=== PATIENT | female | born 1945 | race Caucasian/White ===

== ENCOUNTER 2024-09-22 07:21 | Emergency (ER) | payer OTHER, SELFPAY ==
[2024-09-22 07:26] VITALS: BP 190/67
[2024-09-22 07:30] VITALS: BMI 32.7
--- NOTE | 2024-09-22 09:47 | ED.GENMED ---
History of Present Illness
General
Chief Complaint: Musculo-Skeletal Complaint
Source: patient
Exam Limitations: none
Time Seen by Provider: 09/22/24 09:05
Nursing documentation reviewed up to this point in time: agreed with
History of Present Illness
History of Present Illness:
79-year-old female with a past medical history as noted presents to the ER for evaluation of low back pain rating to the groin/buttock. Patient reports onset of symptoms 4 days ago and have been constant since that time. She reports a vague pain
(occasionally sharp occasionally burning and occasionally pressure) starts in the left low back radiates towards the buttock and around towards the groin; she occasionally will have symptoms radiating down the back of the leg towards the knee but
does not go past the knee. Her symptoms seem to be worse when she is moving. Not worse at any particular time of the day. No clear relieving factors noted�has been taking Advil without relief. She denies any numbness or weakness in the legs.
She denies any bowel or bladder incontinence or saddle anesthesia. She does note that she has been dealing with UTI recently was on a course of Macrobid without improvement and so she was prescribed Keflex. She was having some urinary frequency
and dysuria as part of this but the symptoms have generally improved. She has not had fever or chills. She denies abdominal pain. She denies any other complaints. She denies any falls or trauma recently (had a minor fall without serious injuries
about a month ago but no symptoms until this week).
Review of Systems
Review of Systems
All Other Systems: ROS reviewed and negative except as documented in HPI and ROS
Constitutional: Denies fever or chills
Respiratory: Denies trouble breathing
Cardiac: Denies chest pain
ABD/GI: Denies abdominal pain, nausea or vomiting
: Reports flank pain
Musculoskeletal: Reports back pain; Denies neck pain
Neurological: Denies headache, weakness or numbness
Phy Exam
Physical Exam
Physical Exam:
General: Awake, alert, oriented x3; no acute distress
Head: Normocephalic, atraumatic
Eyes: Conjunctiva normal
Throat: Airway intact, handling secretions
Neck: Trachea midline
Lungs: Clear to auscultation bilaterally, no wheezing, rales, rhonchi
Heart: Regular rate and rhythm, no murmurs, gallops, or rubs
Abd: Soft, non distended, nontender to deep palpation
Back: No CVA tenderness, mild paraspinal tenderness in the lumbosacral region but no midline spinal tenderness; negative straight leg raise test bilaterally
Neuro: Cranial nerves grossly intact, speech fluid; motor and sensory intact in legs bilaterally both proximally and distally, ambulatory with normal gait
Skin: no rash in area of concern
Extremities: No edema in extremities, no calf tenderness, equal pulses in all extremities�specifically strong left femoral, popliteal, DP/PT pulses palpable; range of motion of the left hip she has no pain on full passive range of motion
Scores
Heart Failure Risk
Heart Failure Risk Score: Not Applicable
Heart Score for Chest Pain Patients
STEMI patient?: Not applicable
Withdrawal Assessment of Alcohol
Withdrawal Assessment Completed?: Not applicable
Course
Orders/Labs/Results
Orders:
Orders
09/22/24 09:06
Urinalysis Reflex To Culture Urgent
09/22/24 09:30
CT Abd/pel Without Iv Or Oral Urgent
Comment:
Reason For Exam: left flank pain radiates to hip/buttock; h/o stone
Ketorolac [Toradol] 15 mg IV NOW STA
09/22/24 10:26
Complete Blood Count/With Diff Urgent
Comprehensive Metabolic Panel Urgent
Abnormal Lab Results
09/22/24
10:26
MPV 11.5 H fL
(7.4-10.4)
Abs Immat Gran (auto) 0.1 H 10^3/uL
(0-0.05)
Immature Gran % 1.0 H %
(0-0.5)
Glucose 103 H mg/dl
(70-99)
Calcium 11.1 H mg/dl
(8.4-10.2)
09/22/24 10:26
09/22/24 10:26
Vital Signs
Initial and Last Documented VS:
Initial Vital Signs
Temp Pulse Resp BP Pulse Ox
36.4 C 71 16 190/67 99
09/22/24 07:26 09/22/24 07:26 09/22/24 07:26 09/22/24 07:26 09/22/24 07:26
Last Documented Vital Signs
Temp Pulse Resp BP Pulse Ox
36.4 C 71 16 190/67 100
09/22/24 07:26 09/22/24 07:26 09/22/24 08:00 09/22/24 07:26 09/22/24 07:30
MDM/Problems Addressed
Differential Diagnosis Includes:
Nephrolithiasis, UTI/pyelonephritis, hip arthritis, lumbosacral radiculopathy/sciatica
MDM/Problems Addressed:
79-year-old female presents for evaluation of left low back pain radiates towards the hip/groin and occasionally down the left leg. Ongoing for the past few days. Worse with movement. Has had recent urinary symptoms treated with 2 different
antibiotics�these have improved but not resolved. Hypertensive otherwise normal vitals. Physical exam as above. Plan to check basic labs, urinalysis. Check CT abdomen pelvis. Reassess after the above.
Labs reviewed: CBC and CMP unremarkable. CT abdomen pelvis shows no nephrolithiasis but does show findings concerning for mild acute diverticulitis. No signs of perforation or abscess. Certainly this could account for her flank pain and hip pain.
Will plan to treat with antibiotics I think she is a reasonable candidate for outpatient treatment. He feels very comfortable with this plan. Spoke about return precautions all questions answered.
Acute Exacerbation and/or Progression of Chronic Illness:
Acutely hypertensive without signs or symptoms of hypertensive crisis�no indication for emergent antihypertensive treatment
Acute Exacerbation and/or Progression of Chronic Illness: HTN
*Radiology
Radiology exam reviewed: radiology read reviewed
*Pulse Oximetry
Patient hypoxic: no
*Critical Care Note
Total Time (30-74mins, 75-104mins- exclusive of procedures): Not Applicable
Data Reviewed
Source: patient
ED Attending Note
-
Portions of this chart may have been created with voice recognition software.� Occasional wrong word or��sound alike� substitutions may have occurred due to the inherent limitations of voice recognition software.
Discharge Plan
Departure
Patient Disposition: Home (Routine Discharge)
Date of Disposition: 09/22/24
Time of Disposition: 11:27
Patient with high blood pressure during this ER visit?: Yes
Discharge Problem:
Acute diverticulitis, Hypertension
Instructions: Diverticulitis - Discharge instructions, BLOOD PRESSURE
Prescriptions:
New
amoxicillin-pot clavulanate 875-125 mg tablet
1 tab PO BID Qty: 14 0RF
oxycodone 5 mg tablet
5 mg PO Q8H PRN (Reason: Pain) Qty: 10 0RF
No Action
losartan 50 MG tablet
50 mg PO HS
prednisone 1 MG tablet
5 mg PO DAILY
levothyroxine 50 MCG tablet
50 mcg PO DAILY
furosemide 20 MG tablet
20 mg PO PRN PRN (Reason: ankle swelling)
estradiol 1 APPLIC cream
MONTHLY
cholecalciferol (vitamin D3) [Vitamin D3] 400 UNITS tablet
5,000 units PO DAILY
Famotidine
40 mg PO DAILY
PROLIA:
1 dose SC [id number]
Vitamin C Gummies
1 gum PO DAILY
Xiidra
1 drp BOTH EYES DAILY
vitamins A,C,I-adou-lnwraj [PreserVision AREDS] 1 CAP capsule
1 cap PO DAILY
mupirocin 1 APPLIC ointment
1 applic intranasal BID Qty: 1 0RF
mupirocin 1 APPLIC ointment
1 applic intranasal BID
sennosides [senna] 1 TABLET tablet
2 tab PO BID 0RF
aspirin 325 MG tablet
325 mg PO DAILY 0RF
sulfamethoxazole-trimethoprim 1 TABLET tablet
1 tab PO BID Qty: 8 0RF
docusate sodium 100 MG capsule
100 mg PO BID 0RF
hydrocodone-acetaminophen [[place]] 1 EACH tablet
1 ea PO Q4H Qty: 50 0RF
Rx Instructions:
1-2 tabs po q4-6 hours prn
ciprofloxacin HCl 500 mg tablet
500 mg PO Q12H 7 Days Qty: 14 0RF
metronidazole 500 mg tablet
500 mg PO BID 7 Days Qty: 14 0RF
Referrals:
Poornima Sidhu DO [Family Provider] - Follow up in 5-7 days
Activity Restrictions/Additional Instructions:
Thank you for visiting the Emergency Department at [facility].
1. Please schedule a follow up appointment as directed. Call first thing tomorrow morning to make an appointment.
2. If indicated, please take your medications as instructed and indicated on discharge paperwork.
3. If any of your symptoms do not improve, or persist, or become more severe within 6-12 hours, please return to the emergency department for further care.
4. Please return to the emergency department if you develop a headache, neck pain/stiffness, fever greater than 100.4F, chest pain, shortness of breath, persistent nausea, vomiting, slurred speech, difficulty walking, numbness/tingling, weakness,
signs of infection or any other symptoms that are worrisome to you.
Please call [phone] if you have any questions.
Interventions
Interventions:
*Risk Screen - Suicide Last Done: 09/22/24 07:29
*General Assessment Last Done: 09/22/24 07:29
*Neglect/Abuse Screening Last Done: 09/22/24 07:29
*ED- Fall Risk Assessment Last Done: 09/22/24 07:26
*ED COVID-19 Vaccine History Last Done: 09/22/24 07:26
ED-Musculoskeletal Assessment Last Done: 09/22/24 07:29
Discharge Date and Time
Print Language: KINYARWANDA
[2024-09-22] MEDS: TORADOL 15 MG IV (10:40)
[2024-09-22 10:55] LABS: % Basophils 0.2 % (0-2); % Eosinophils 0.9 % (0-6); % Lymphocytes 21.4 % (20.5-51.1); % Monocytes 6.9 % (1.7-9.3); % Neutrophils 69.6 % (42.2-75.2); Absolute Eosinophils 0.1 10^3/uL (0-0.7); Absolute Immature Granulocytes 0.1 10^3/uL (0-0.05); Absolute Monocytes 0.6 10^3/uL (0.1-0.6); Absolute Neutrophils 6.4 10^3/uL (1.4-6.5); Hematocrit 44.8 % (37.0-47.0); Hemoglobin 15.2 g/dL (12.0-16.0); Mean Corp Hgb Conc. 33.9 g/dL (33.0-37.0); Mean Corpuscular Hgb 30.6 pg (27.0-31.0); Mean Corpuscular Volume 90.3 fL (81.0-99.0); Mean Platelet Volume 11.5 fL (7.4-10.4); Nucleated Red Blood Cells % 0 %; Platelet Count 227 10^3/uL (130-400); Red Blood Cell Count 4.96 10^6/uL (4.20-5.40); Red Cell Dist. Width 13.4 % (11.5-14.5); White Blood Cell Count 9.2 10^3/uL (4.8-10.8)
[2024-09-22 11:07] LABS: ALT (SGPT) 22 U/L (0-35); AST (SGOT) 24 U/L (14-36); Albumin 4.5 g/dl (3.5-5.0); Alkaline Phosphatase 49 U/L (38-126); Blood Urea Nitrogen 15 mg/dl (7-17); Calcium 11.1 mg/dl (8.4-10.2); Carbon Dioxide 26 mmol/L (22-30); Chloride 107 mmol/L (98-107); Estimated Creatinine Clearance 60 ml/min; Glucose 103 mg/dl (70-99); Potassium 4.4 mmol/L (3.5-5.1); Sodium 143 mmol/L (135-145); Total Bilirubin 0.8 mg/dl (0.2-1.3); Total Protein 6.9 g/dl (6.3-8.2); eGFR > 60.00
[2024-09-22 11:47] VITALS: BP 154/56
== END 2024-09-22 12:03 | disposition home or self-care (01) ==
LOC: EMR 07:21
PROVIDERS: EMERGENCY PHYSICIAN Emergency Medicine; FAMILY PHYSICIAN Internal Medicine
DX: K57.32 Diverticulitis of large intestine without perforation or abscess without bleeding (principal); I10 Essential (primary) hypertension; Z87.440 Personal history of urinary (tract) infections; Z90.49 Acquired absence of other specified parts of digestive tract
CPT/HCPCS: 96374; 99284; 74176; 80053; 85025

== ENCOUNTER 2024-09-28 18:50 | Emergency (ER) | payer OTHER, SELFPAY ==
[2024-09-28 19:56] LABS: % Basophils 0.1 % (0-2); % Eosinophils 0.8 % (0-6); % Immature Granulocytes 0.6 % (0-0.5); % Lymphocytes 17.2 % (20.5-51.1); % Monocytes 8.2 % (1.7-9.3); % Neutrophils 73.1 % (42.2-75.2); Absolute Eosinophils 0.1 10^3/uL (0-0.7); Absolute Immature Granulocytes 0.1 10^3/uL (0-0.05); Absolute Neutrophils 8.5 10^3/uL (1.4-6.5); Hemoglobin 14.7 g/dL (12.0-16.0); Mean Corp Hgb Conc. 33.4 g/dL (33.0-37.0); Mean Corpuscular Hgb 30.4 pg (27.0-31.0); Mean Corpuscular Volume 90.9 fL (81.0-99.0); Mean Platelet Volume 11.5 fL (7.4-10.4); Nucleated Red Blood Cells % 0 %; Platelet Count 225 10^3/uL (130-400); Red Blood Cell Count 4.84 10^6/uL (4.20-5.40); Red Cell Dist. Width 13.4 % (11.5-14.5); White Blood Cell Count 11.6 10^3/uL (4.8-10.8)
[2024-09-28 20:01] LABS: Urine Albumin 1+ (Neg - Trace); Urine Bilirubin Negative (Negative); Urine Character Clear (Clear); Urine Color Yellow; Urine Glucose Negative (Negative); Urine Ketone Negative (Negative); Urine Leukocyte 2+ (Negative); Urine Nitrite Negative (Negative); Urine Occult Blood Negative (Negative); Urine Specific Gravity 1.015 (<1.030); Urine Urobilinogen Negative (Neg - 1+)
[2024-09-28 20:10] LABS: ALT (SGPT) 19 U/L (0-35); AST (SGOT) 21 U/L (14-36); Albumin 4.4 g/dl (3.5-5.0); Alkaline Phosphatase 44 U/L (38-126); Blood Urea Nitrogen 24 mg/dl (7-17); Calcium 10.7 mg/dl (8.4-10.2); Carbon Dioxide 28 mmol/L (22-30); Chloride 107 mmol/L (98-107); Glucose 115 mg/dl (70-99); Lipase 97 U/L (23-300); Potassium 3.7 mmol/L (3.5-5.1); Sodium 141 mmol/L (135-145); Total Bilirubin 0.4 mg/dl (0.2-1.3); eGFR > 60.00
[2024-09-28 20:10] LABS: Urine Bacteria Few (Negative); Urine Red Blood Cell 0-2 /HPF (0-2); Urine Squamous Cell >30 /LPF (Few)
[2024-09-28 23:04] VITALS: BP 165/79
--- NOTE | 2024-09-28 23:55 | ED.GENMED ---
History of Present Illness
General
Chief Complaint: Abdominal Pain
Source: patient and family
Time Seen by Provider: 09/28/24 23:24
History of Present Illness
History of Present Illness:
79-year-old female presents the emergency department with complaints of pain in the left buttock area radiating around to the groin and now thigh. This happened over the last 2 to 4 weeks and is getting progressively worse. She states that the
pain seems to come and go without specific provoking or relieving factors. As she sitting here in the bed she describes it as a mild to moderate 'throbbing' pain. Then, sometimes she will start to walk and it will get very intense described as a
'spasm' lasting about 10 minutes at a time and then 'it just eases up'. Patient denies abdominal pain, nausea, vomiting, fever, chills, anorexia, urinary symptoms. Bowel movements are normal. She denies weakness, numbness, tingling, incontinence,
perianal anesthesia. She did also note bilateral lower extremity edema, mild, improving with Lasix that she was instructed to take over the last 3 days. Patient was here recently and diagnosed with mild diverticulitis. At that time she was
complaining of pain in the back and hip area. Since that ED visit, she did see her orthopedic doctor who reviewed that ED CAT scan and confirmed that there was no fracture or other orthopedic abnormalities noted. She is due to get an MRI to rule
out 'pinched nerve'. In the interim she was given an injection for potential hip bursitis. This has not helped her symptoms.
Past History
Past History
ED Past Medical History: Other (Hypertension, psoriatic arthritis, hypothyroidism, vaginal prolapse, macular degeneration, duodenal ulcer)
ED Past Surgical History: Orthopedic
Social History
Tobacco: Non-smoker
Alcohol: Occasional
Drug: None
Living: alone
Phy Exam
Physical Exam
Physical Exam:
GENERAL: Alert , in no apparent distress, moves about the bed easily can sit up and roll on her side without complaints of pain
EYE: pupils equal and reactive
NECK: Supple, no significant adenopathy.
ENT: o/p clr, mmm.
CARDIAC: Regular rate and rhythm .
LUNGS: Clear breath sounds bilaterally, no acute respiratory distress, no wheezes/rales/rhonchi
ABDOMEN: Soft, very minimal left lower quadrant tenderness, no r/g, no cvat
NEUROLOGICAL: Alert and oriented, no focal neuro deficits
SKIN: Warm and dry, skin intact.
MUSCULOSKELETAL: Trace bilateral lower extremity edema, well perfused, 2+ DP pulses bilaterally, negative SLR, motor 5 out of 5 lower extremity bilaterally, sensation intact to light touch.
PSYCH: Normal and appropriate interaction.
Back no rash or skin abnormalities noted, nontender to palpation throughout the spine, no swelling.
Course
Orders/Labs/Results
Orders:
Orders
09/28/24 19:38
IV Insert/Care/Rem.- Treatment PRN
09/28/24 19:46
Complete Blood Count/With Diff Urgent
Comprehensive Metabolic Panel Urgent
Lipase Urgent
09/28/24 19:55
Urinalysis Reflex To Culture Urgent
Date Specimen was Collected: 09/28/24
Time Specimen was Collected: 19:39
Urine Microscopic Reflex Cult Urgent
Urine Culture Urgent
HENRIQUE Source: U
Specimen Description:
Date Specimen was Collected: 09/28/24
Time Specimen was Collected: 19:39
09/28/24 23:54
0.9% Sodium Chloride 500 ml [Nss] 500 ml IV BOLUS
Morphine Sulfate 2 mg IV NOW STA
09/29/24 00:03
CT Abd/pel Without Iv Or Oral Urgent
Reason For Exam: llq pain, recent diverticulitis
09/29/24 02:34
diazePAM [Valium Injection] 2 mg IV NOW STA
09/29/24 23:54
US Periph Venous LOWER Ext LT Urgent
Reason For Exam: swelling
Abnormal Lab Results
09/28/24 09/28/24
19:46 19:55
WBC 11.6 H 10^3/uL
(4.8-10.8)
MPV 11.5 H fL
(7.4-10.4)
Abs Immat Gran (auto) 0.1 H 10^3/uL
(0-0.05)
Absolute Neuts (auto) 8.5 H 10^3/uL
(1.4-6.5)
Absolute Monos (auto) 1.0 H 10^3/uL
(0.1-0.6)
Immature Gran % 0.6 H %
(0-0.5)
Lymphocytes % 17.2 L %
(20.5-51.1)
BUN 24 H mg/dl
(7-17)
Glucose 115 H mg/dl
(70-99)
Calcium 10.7 H mg/dl
(8.4-10.2)
Leukocyte Esterase Rfl 2+ A
(Negative)
Urine Bacteria (Reflex) Few A
(Negative)
Urine Albumin (Reflex) 1+ A
(Neg - Trace)
09/28/24 19:46
09/28/24 19:46
Vital Signs
Initial and Last Documented VS:
Initial Vital Signs
Temp Pulse Resp Pulse Ox
98.3 F 80 20 97
09/28/24 19:12 09/28/24 19:12 09/28/24 19:12 09/28/24 19:12
Last Documented Vital Signs
Temp Pulse Resp BP Pulse Ox
97.7 F 59 14 151/59 96
09/29/24 00:32 09/29/24 02:26 09/29/24 02:26 09/29/24 02:26 09/29/24 02:26
Update Note
Update Note:
Patient presents to the Emergency Department with ____back groin and leg pain
Number and Complexity of Problems Addressed at the Encounter
� Chronic conditions affecting care:
� Acute Exacerbation and/or Progression of Chronic Illness:
� Differential Diagnosis includes: But not limited to radiculopathy, diverticular abscess, arthritis, etc. etc.
Amount and/or Complexity of Data to be Reviewed and Analyzed
� I performed an independent evaluation of and my interpretation is:
EKG:
CT: Report from vision mild to full colon, colon diverticulosis without focal inflammation no bowel obstruction abscess or free air.
Xrays:
Laboratory Studies: Mild white blood cell count elevation, prerenal azotemia noted, UA equivocal
Other: Verbal report ultrasound negative for DVT
� Review of other/old records reveals: Visit from September 22 reviewed by me, CT consistent with mild acute diverticulitis, at that time she was reporting flank and hip pain on the left side.
� Clinical information was obtained by an independent historian: Daughter who is bedside
� Prescriptions/Medications Considered but not given: Consider giving anti-inflammatories such as Toradol however given prior history of duodenal ulcer and risks associated, will not do that
� Further testing considered but not performed:
Risk of Complications and/or Morbidity or Mortality of Patient Management
� Social determinants of health affecting care:
� Discussion with other providers (PCP, Hospitalists, Consultants, etc):
� Escalation of care including admission/observation vs risk of discharge considered: 3:08 AM medication made patient feel slightly better, but then when moving for CAT scan pain returned. She says it feels like a spasm muscular
pain. Patient given a dose of Valium. I strongly suspect patient's symptoms related to radiculopathy, which is what her orthopedic doctor also suspects. Will avoid nonsteroidals given ulcer history. Patient will be prescribed medication for her
symptoms until she can follow-up with her orthopedic doctor for further care.
ED Attending Note
-
Portions of this chart may have been created with voice recognition software.� Occasional wrong word or��sound alike� substitutions may have occurred due to the inherent limitations of voice recognition software.
Discharge Plan
Departure
Patient Disposition: Home (Routine Discharge)
Date of Disposition: 09/29/24
Time of Disposition: 03:09
Patient with high blood pressure during this ER visit?: Yes
Condition: Good
Discharge Problem:
Buttock pain
Instructions: Radiculopathy of the neck and back (including sciatica), BLOOD PRESSURE
Prescriptions:
New
cyclobenzaprine 10 mg tablet
10 mg PO TID PRN (Reason: SPASM) Qty: 17 0RF
No Action
losartan 50 MG tablet
50 mg PO HS
levothyroxine 50 MCG tablet
50 mcg PO DAILY
furosemide 20 MG tablet
20 mg PO PRN PRN (Reason: ankle swelling)
PROLIA:
1 dose SC [id number]
amoxicillin-pot clavulanate 875-125 mg tablet
1 tab PO BID Qty: 14 0RF
oxycodone 5 mg tablet
5 mg PO Q8H PRN (Reason: Pain) Qty: 10 0RF
famotidine 40 mg Tablet
40 mg PO DAILY
Systane (PF) 0.4-0.3 % Dropperette
1 drp BOTH EYES TID PRN (Reason: dry eyes)
cholecalciferol (vitamin D3) 50 mcg (2,000 unit) Tablet
50 mcg PO DAILY
methotrexate sodium
1 tab PO MOTU
Patient Comments:
pt does not know mg
methylprednisolone
1 tab PO SUWETHFRSA
Patient Comments:
pt does not know mg
Referrals:
UNKNOWN - PT NOT,INTERVIEWE [Family Provider] -
Activity Restrictions/Additional Instructions:
PLEASE FOLLOW UP WITH YOUR DOCTOR SOON POSSIBLE. IF YOU DEVELOP NUMBNESS, WEAKNESS, INCONTINENCE, FEVER, VOMITING, GET WORSE, OR OTHER WORRISOME SIGNS, GO TO THE ER IMMEDIATELy!
Interventions
Interventions:
*Risk Screen - Suicide Last Done: 09/28/24 19:12
*General Assessment Last Done: 09/28/24 19:12
*Neglect/Abuse Screening Last Done: 09/28/24 19:12
*ED- Fall Risk Assessment Last Done: 09/28/24 19:16
*ED COVID-19 Vaccine History Last Done: 09/28/24 19:12
ZU-Kagasr-Ipihqseuym Assessment Last Done: 09/29/24 00:48
Discharge Date and Time
Print Language: FRENCH
[2024-09-29 00:22] VITALS: BMI 30.9
[2024-09-29] MEDS: NSS 500 IV (00:28)
[2024-09-29 00:32] VITALS: BP 172/71
[2024-09-29] MEDS: MORPHINE SULFATE 2 MG IV (00:33)
[2024-09-29 02:26] VITALS: BP 151/59
[2024-09-29] MEDS: VALIUM INJECTION 2 MG IV (02:45)
== END 2024-09-29 03:35 | disposition home or self-care (01) ==
LOC: EMR 18:50
PROVIDERS: Student in an Organized Health Care Education/Training Program; EMERGENCY PHYSICIAN Emergency Medicine
DX: M79.18 Myalgia, other site (principal); M79.652 Pain in left thigh; R10.9 Unspecified abdominal pain; R60.0 Localized edema; K57.30 Diverticulosis of large intestine without perforation or abscess without bleeding; I10 Essential (primary) hypertension; E03.9 Hypothyroidism, unspecified
CPT/HCPCS: 96374; 96375; 96361; 99284; 74176; 80053; 81003; 81015; 83690; 85025; 87086; 93971

== ENCOUNTER → 2024-11-15 12:36 | Outpatient (REF) | payer OTHER, SELFPAY | LOC: HWRAD 12:36 | PROVIDERS: ATTENDING PHYSICIAN Obstetrics & Gynecology; FAMILY PHYSICIAN Internal Medicine | DX: N81.2 Incomplete uterovaginal prolapse (principal) | CPT/HCPCS: 76830; 76856 ==

== ENCOUNTER 2024-12-24 06:17 | Day surgery (SDC) | payer OTHER, SELFPAY ==
[2024-12-10 14:11] VITALS: BMI 29.7
--- NOTE | 2024-12-11 15:47 | PTCARENOTE ---
Abnormal EKG on 12/10/24. Dr. Chaparor aware. No intervention needed.
--- NOTE | 2024-12-17 15:00 | PTCARENOTE ---
Abnormal ECG 12/10/24, reviewed by Dr Pickens, no further interventions requested.
[2024-12-24] VITALS (10 sets, daily range): BP systolic 137–159; BP diastolic 61–80; BMI 29.7
[2024-12-24] MEDS: NORMOSOL-R/PLASMALYTE-A 1000 IV (09:51)
[2024-12-24] MEDS: DILAUDID 0.25 MG IV (13:19)
[2024-12-24] MEDS: SUBLIMAZE 25 MCG IV (13:55)
== END 2024-12-24 15:35 | disposition home or self-care (01) ==
LOC: SDS 06:17
PROVIDERS: ATTENDING PHYSICIAN Obstetrics & Gynecology; FAMILY PHYSICIAN Internal Medicine
DX: N81.2 Incomplete uterovaginal prolapse (principal); N39.3 Stress incontinence (female) (male); N36.41 Hypermobility of urethra
CPT/HCPCS: 57288; 57120; 57250; 36415; 86850; 86900; 86901; 93005; C1771

== ENCOUNTER 2025-05-03 09:22 | Emergency (ER) | payer OTHER, SELFPAY ==
[2025-05-03 09:23] VITALS: BP 136/85
[2025-05-03 09:51] LABS: Hematocrit 42.7 % (37.0-47.0); Hemoglobin 14.5 g/dL (12.0-16.0); Mean Corp Hgb Conc. 34.0 g/dL (33.0-37.0); Mean Corpuscular Volume 89.0 fL (81.0-99.0); Nucleated Red Blood Cells % 0 %; Platelet Count 217 10^3/uL (130-400); Red Cell Dist. Width 14.2 % (11.5-14.5)
[2025-05-03 10:16] LABS: ALT (SGPT) 19 U/L (0-35); AST (SGOT) 22 U/L (14-36); Albumin 4.0 g/dl (3.5-5.0); Alkaline Phosphatase 55 U/L (38-126); Blood Urea Nitrogen 15 mg/dl (7-17); Calcium 10.9 mg/dl (8.4-10.2); Carbon Dioxide 23 mmol/L (22-30); Chloride 106 mmol/L (98-107); Glucose 142 mg/dl (70-99); Potassium 4.0 mmol/L (3.5-5.1); Sodium 136 mmol/L (135-145); Total Protein 6.9 g/dl (6.3-8.2); eGFR > 60.00
--- NOTE | 2025-05-03 10:39 | ED.GENMED ---
History of Present Illness
<Dagoberto Hooks MD, Resident - Last Filed: 05/03/25 13:58>
General
Chief Complaint: Dizziness
Time Seen by Provider: 05/03/25 10:39
History of Present Illness
History of Present Illness:
80 yo F PMH HTN, macular degeneration p/w vertigo when she woke up this morning and turned over to check her phone. She reports room-spinning that has gotten better as the morning went on. The symptoms are intermittent.
She denies hearing loss, tinnitus, or congestion. She denies headache.
She denies palpitations. She denies syncope. Denies head strike.
She endorses nausea, denies vomiting.
these symptoms have occurred 3-4 months prior and self-resolved.
She denies focal weakness.
She denies chest pain, dyspnea.
She is on doxycycline for a rt leg wound infection. She endorses a chronic postnasal drip.
She has a history of recurrent UTIs.
Social hx is unremarkable
Past History
<Dagoberto Hooks MD, Resident - Last Filed: 05/03/25 13:58>
Past History
ED Past Medical History: Other (Hypertension, psoriatic arthritis, hypothyroidism, vaginal prolapse, macular degeneration, duodenal ulcer)
ED Past Surgical History: Orthopedic
Social History
Tobacco: Non-smoker
Alcohol: Occasional
Drug: None
Living: alone
Review of Systems
<Dagoberto Hooks MD, Resident - Last Filed: 05/03/25 13:58>
Review of Systems
Constitutional: Reports no symptoms
EENT: Reports no symptoms
Respiratory: Reports no symptoms
Cardiac: Reports no symptoms
ABD/GI: Reports no symptoms
: Reports no symptoms
Musculoskeletal: Reports no symptoms
Neurological: Reports dizzy
Phy Exam
<Dagoberto Hooks MD, Resident - Last Filed: 05/03/25 13:58>
Physical Exam
Physical Exam:
VS 146.73; HR 71; afebrile
General: no acute distress
HEENT: corrective sacchade elicited on head impulse test to the right, on my exam, EOMI, no nystagmus, test of skew negative; Attempted eileen-Halpike did not elicit vertigo symptoms
Neuro: AOx3, upper and lower extremitites grossly intact motor function
CV: regular rhythm, no murmurs on my exam
Pulm: CTAB
GI: nontender abdomen
Course
<Dagoberto Hooks MD, Resident - Last Filed: 05/03/25 13:58>
Orders/Labs/Results
Orders:
Orders
05/03/25 09:26
Electrocardiogram (*1) Urgent
Reason for Study: Chest Pain
EKG- Treatment ONCE
05/03/25 09:42
Complete Blood Count/With Diff Urgent
Comprehensive Metabolic Panel Urgent
05/03/25 11:09
PT Consult [Pt Eval And Treat] Urgent
Treatment: Vestibular therapy consult
Activity Level: As Tolerated
05/03/25 12:44
CT Head W/o Iv Contrast Urgent
Comment:
Reason For Exam: dizziness
Abnormal Lab Results
05/03/25
09:42
MPV 11.1 H fL
(7.4-10.4)
Abs Immat Gran (auto) 0.2 H 10^3/uL
(0-0.05)
Absolute Neuts (auto) 8.4 H 10^3/uL
(1.4-6.5)
Immature Gran % 1.6 H %
(0-0.5)
Neutrophils % 81.1 H %
(42.2-75.2)
Lymphocytes % 13.5 L %
(20.5-51.1)
Glucose 142 H mg/dl
(70-99)
Calcium 10.9 H mg/dl
(8.4-10.2)
05/03/25 09:42
05/03/25 09:42
Vital Signs
Initial and Last Documented VS:
Initial Vital Signs
Temp Pulse Resp BP Pulse Ox
98.1 F 77 20 136/85 98
05/03/25 09:23 05/03/25 09:23 05/03/25 09:23 05/03/25 09:23 05/03/25 09:23
Last Documented Vital Signs
Temp Pulse Resp BP Pulse Ox
98.1 F 71 16 132/74 98
05/03/25 09:23 05/03/25 11:05 05/03/25 11:05 05/03/25 12:03 05/03/25 11:05
<Tito Bolden, DO - Last Filed: 05/03/25 13:53>
Orders/Labs/Results
Orders:
Orders
05/03/25 09:26
Electrocardiogram (*1) Urgent
Reason for Study: Chest Pain
EKG- Treatment ONCE
05/03/25 09:42
Complete Blood Count/With Diff Urgent
Comprehensive Metabolic Panel Urgent
05/03/25 11:09
PT Consult [Pt Eval And Treat] Urgent
Treatment: Vestibular therapy consult
Activity Level: As Tolerated
05/03/25 12:44
CT Head W/o Iv Contrast Urgent
Comment:
Reason For Exam: dizziness
Abnormal Lab Results
05/03/25
09:42
MPV 11.1 H fL
(7.4-10.4)
Abs Immat Gran (auto) 0.2 H 10^3/uL
(0-0.05)
Absolute Neuts (auto) 8.4 H 10^3/uL
(1.4-6.5)
Immature Gran % 1.6 H %
(0-0.5)
Neutrophils % 81.1 H %
(42.2-75.2)
Lymphocytes % 13.5 L %
(20.5-51.1)
Glucose 142 H mg/dl
(70-99)
Calcium 10.9 H mg/dl
(8.4-10.2)
05/03/25 09:42
05/03/25 09:42
Vital Signs
Initial and Last Documented VS:
Initial Vital Signs
Temp Pulse Resp BP Pulse Ox
98.1 F 77 20 136/85 98
05/03/25 09:23 05/03/25 09:23 05/03/25 09:23 05/03/25 09:23 05/03/25 09:23
Last Documented Vital Signs
Temp Pulse Resp BP Pulse Ox
98.1 F 71 16 132/74 98
05/03/25 09:23 05/03/25 11:05 05/03/25 11:05 05/03/25 12:03 05/03/25 11:05
<Dagoberto Hooks MD, Resident - Last Filed: 05/03/25 13:58>
MDM/Problems Addressed
Differential Diagnosis Includes:
BPPV, cerebellar stroke, acoustic neuroma, arrhythmia, presyncope
MDM/Problems Addressed:
80 yo F who presents with positional vertigo w/ nausea that worsens when turning head, especially when waking up in the AM, currently highly suspicious for BPPV
She denies headache, and the self-limited nature of symptoms points away from an intracranial mass, eg acoustic neuroma.
EKG was NSR, she denies palpitations reassures against arrhythmia.
She has no focal deficits and is AOx3, and is currently not experiencing vertigo symptoms, a central pathology would likely have persistent symptoms
initial labs, CBC/CMP are laregly within normal limits, no severe electrolytes abnormalities
Plan:
CBC
CMP
PT/OT for vestibular therapy consult
will order meclizine AFTER vestibular therapy as to not confound the testing
Update:
Vestibular consult does not show clear-cut BPPV
CT Head noncontrast ordered for further evaluation
Update:
CT Head noncon did not reveal an acute intracranial abnormality.
Patient feels clinically well to be discharged, and is okay with going home
Dispo home; script for vestibular therapy was provided to patient with instructions for outpatient follow-up.
<Dagoberto Hooks MD, Resident - Last Filed: 05/03/25 13:58>
*Pulse Oximetry
SaO2: 98
Oxygen Mode of Delivery: Room air
Patient hypoxic: no
*Critical Care Note
Total Time (30-74mins, 75-104mins- exclusive of procedures): Not Applicable
ED Attending Note
<Dagoberto Hooks MD, Resident - Last Filed: 05/03/25 13:58>
-
Portions of this chart may have been created with voice recognition software.� Occasional wrong word or��sound alike� substitutions may have occurred due to the inherent limitations of voice recognition software.
<Tito Bolden, DO - Last Filed: 05/03/25 13:53>
ED Attending Note
Patient seen and examined by attending physician: Yes
I performed a history and physical exam of patient and discussed management with resident, I reviewed resident's note and agree with documented findings and plan of care.: Yes
ED Attending Note:
I have reviewed and agree with history treatment plan by Dagoberto Hooks MD. My exam revealed 80-year-old female with intermittent leftward nystagmus. CT head no acute findings no acute findings on labs or EKG. Suspect vertigo. Do not suspect
CVA or intracranial tumor. Stable for discharge follow-up with physical therapy care. Return precautions given
Discharge Plan
Departure
Patient Disposition: Home (Routine Discharge)
Date of Disposition: 05/03/25
Time of Disposition: 13:57
Patient with high blood pressure during this ER visit?: Yes
Discharge Problem:
Vertigo
Instructions: Vertigo (a Type of Dizziness) (DC)
Prescriptions:
No Action
losartan 50 MG tablet
50 mg PO HS
levothyroxine 50 MCG tablet
50 mcg PO DAILY
furosemide 20 MG tablet
20 mg PO PRN PRN (Reason: ankle swelling)
famotidine 40 mg Tablet
40 mg PO PRN PRN (Reason: gerd)
cholecalciferol (vitamin D3) 50 mcg (2,000 unit) Tablet
50 mcg PO DAILY
methylprednisolone 4 mg Tablet
4 mg PO SUMOWETHFRSA
methotrexate sodium [Methotrexate (Anti-Rheumatic)] 2.5 mg Tablet
12.5 mg PO TU
folic acid 1 mg Tablet
1 mg PO HS
estradiol 0.01 % (0.1 mg/gram) Cream
1 g VAGINAL QWEEK
Systane (PF) 0.4-0.3 % Dropperette
1 drp OPHTHALMIC (EYE) 6XD PRN (Reason: dry eye)
Prolia 60 mg/mL Syringe
60 mg SC [id number]
Eylea 2 mg/0.05 mL Solution
2 mg INTRAVITREAL ONCE
PreserVision AREDS-2 250-90-40-1 mg Capsule
1 tab PO BID
Referrals:
Poornima Sidhu DO [Family Provider, Internal Medicine]
Activity Restrictions/Additional Instructions:
You have been provided a script for vestibular therapy. Please follow-up with your family doctor and/or physical therapist in outpatient setting.
Interventions
Interventions:
*General Assessment Last Done: 05/03/25 09:23
*Neglect/Abuse Screening Last Done: 05/03/25 09:23
*ED COVID-19 Vaccine History Last Done: 05/03/25 10:37
*ED Influenza Vaccine History Last Done: 05/03/25 10:37
[facility] Fall Risk Assessment Tool Last Done: 05/03/25 10:37
*Risk Screen - Suicide (C-SSRS) Last Done: 05/03/25 11:03
ED- Neurological Assessment Last Done: 05/03/25 11:03
ED Swallowing Screen Last Done: 05/03/25 11:03
Discharge Date and Time
Print Language: HEBREW
[2025-05-03 11:05] VITALS: BP 146/73
[2025-05-03 12:03] VITALS: BP 132/74
[2025-05-03 12:57] VITALS: BP 170/65; BP 176/70
== END 2025-05-03 14:56 | disposition home or self-care (01) ==
LOC: EMR 09:22
PROVIDERS: EMERGENCY PHYSICIAN Emergency Medicine; FAMILY PHYSICIAN Internal Medicine
DX: R42 Dizziness and giddiness (principal); I10 Essential (primary) hypertension; E03.9 Hypothyroidism, unspecified; Z87.11 Personal history of peptic ulcer disease
CPT/HCPCS: 99284; 70450; 80053; 85025; 93005; 97530